=== PATIENT | female | born 1980 | race Caucasian/White ===

== ENCOUNTER 2020-03-21 03:32 | Emergency (ER) | payer MEDICAID ==
[2020-03-21 03:41] VITALS: BP 149/105; PULSE 108
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
== END 2020-03-21 11:40 | disposition home or self-care (01) ==
LOC: JP.ED 03:32
DX: R44.0 Auditory hallucinations (principal); F10.10 Alcohol abuse, uncomplicated; S61.512A Laceration without foreign body of left wrist, initial encounter; Y90.8 Blood alcohol level of 240 mg/100 ml or more; I10 Essential (primary) hypertension; Z79.899 Other long term (current) drug therapy; Z72.0 Tobacco use; W54.8XXA Other contact with dog, initial encounter
CPT/HCPCS: 36415; 80053; 80305-QW; 80307; 81001; 81025; 85025; 99284; 99285

== ENCOUNTER 2021-07-28 12:16 | Emergency (ER) | payer MEDICAID ==
[2021-07-28] MEDS ORDERED: Sodium Chloride 0.9% 10 ML Syringe FLUSH PRN (13:07)
[2021-07-28] MEDS ORDERED: Ketorolac 30 MG/ML SDV IVPUSH ONE (13:13)
[2021-07-28] MEDS ORDERED: Sodium Chloride 0.9% 1,000 ML IV SCH (13:15)
[2021-07-28 13:37] LABS: ESTIMATED GFR > 60 (>60)
[2021-07-28 13:42] VITALS: BP 135/93; PULSE 90
== END 2021-07-28 15:04 | disposition home or self-care (01) ==
LOC: JP.ED 12:16
DX: R10.31 Right lower quadrant pain (principal); R10.32 Left lower quadrant pain; F17.210 Nicotine dependence, cigarettes, uncomplicated; Z88.0 Allergy status to penicillin
CPT/HCPCS: 36415; 74176; 80048; 85025; 96374; 99283; 99284; J1885; J3490; J7030